=== PATIENT | male | born 1970 | race Caucasian/White ===

== ENCOUNTER 2024-10-10 06:12 | Day surgery (SDC) | payer BC ==
[2024-10-10] MEDS: Dextrose 5%-0.45% NaCl 1,000 ML IV SCH (06:39)
[2024-10-10] MEDS ORDERED: Midazolam 1 MG/ML 2 ML SDV ONE (06:50)
[2024-10-10] MEDS ORDERED: fentaNYL 100 MCG/2 ML SDV IV ONE (06:51)
[2024-10-10] MEDS ORDERED: fentaNYL 100 MCG/2 ML SDV ONE (06:51)
[2024-10-10] MEDS ORDERED: Midazolam 1 MG/ML 2 ML SDV IV ONE (06:51)
[2024-10-10] MEDS: fentaNYL 100 MCG/2 ML SDV IV ONE ×2 (06:58)
[2024-10-10] MEDS: Midazolam 1 MG/ML 2 ML SDV IV ONE ×2 (06:59)
== END 2024-10-10 09:36 | disposition home or self-care (01) ==
LOC: DL.ENDO 06:12
PROVIDERS: ATTEND Internal Medicine Gastroenterology
DX: R12 Heartburn (principal); R07.89 Other chest pain; K31.89 Other diseases of stomach and duodenum
CPT/HCPCS: J2250; J3010